=== PATIENT | female | born 1990 | race Two or more races ===

== ENCOUNTER 2018-07-19 20:03 | Emergency (ER) | payer MEDICARE, MEDICAID ==
[~2018-07-19] VITALS: Ht 157.5 cm; Wt 63.5 kg
[2018-07-19] MEDS ORDERED: EPINEPHrine HCL 1 MG/10 ML SYRG IV ONE (20:07)
[2018-07-19] MEDS ORDERED: DEXTROSE (50%) 50ML SYRG IV ONE (20:07)
[2018-07-19] MEDS ORDERED: SODIUM BICARBONATE 8.4% INJ 50ML SYRINGE IV ONE (20:07)
[2018-07-19 20:08] VITALS: BP 62/16
== END 2018-07-19 23:58 | disposition expired ==
LOC: EDAGE 20:03 → ER 20:06 → EDBD 20:06 → ER 23:58
DX: S20.312A Abrasion of left front wall of thorax, initial encounter (principal); S20.311A Abrasion of right front wall of thorax, initial encounter; S30.811A Abrasion of abdominal wall, initial encounter; I46.9 Cardiac arrest, cause unspecified; V03.90XA Pedestrian on foot injured in collision with car, pick-up truck or van, unspecified whether traffic or nontraffic accident, initial encounter; Y93.89 Activity, other specified; Y99.8 Other external cause status; Y92.488 Other paved roadways as the place of occurrence of the external cause
CPT/HCPCS: 31500; 71045; 92950; 99285; J0171; J7042